=== PATIENT | male | born 1975 | race Caucasian/White ===

== ENCOUNTER 2017-05-25 12:31 | Outpatient (CLI) | payer OTHER ==
--- NOTE | 2017-05-26 15:02 | MRI Report ---
EXAM: MRI CERVICAL SPINE WITHOUT CONTRAST EXAM DATE: 05/25/2017 01:17 PM. CLINICAL HISTORY: Left arm numbness and tingling COMPARISONS: None. TECHNIQUE: Multiplanar, multisequence T1-weighted and fluid-sensitive sequences of the cervical spine without contrast. Other: None. FINDINGS: Neurologic Structures: The visualized posterior fossa structures are unremarkable. No signal abnormal ity in the visualized spinal cord. Alignment: No scoliosis or spondylolisthesis. Bone Marrow: No gross fractures or bone lesions. No marrow edema. Interspace Levels/Facets: C1-C2: Unremarkable. C2-C3: Unremarkable. C3-C4: Unremarkable. C4-C5: Unremarkable. C5-C6: Mild broad based bulge. Mild central stenosis. Moderate bilateral stenosis and prominent fac ets. C6-C7: Moderate broad based disk bulge with moderate central and foraminal stenosis C7-T1: Unremarkable. Musculature: Normal. No edema or fatty atrophy. Other: The paravertebral and prevertebral soft tissues are normal. IMPRESSION: 1. Spinal cord, bones and marrow have a normal appearance. 2. C5-C6 shows mild central stenosis and moderate bilateral stenosis. 3. C6-C7 shows moderate central and foraminal stenosis. 4. C7-T1 is normal. [facility] Referring Provider Line: [phone] SITE ID: [id number]
== END 2017-05-25 12:32 | disposition home or self-care (01) ==
LOC: DI 12:31
PROVIDERS: ATTEND General Practice
DX: R20.0 Anesthesia of skin (principal); M48.02 Spinal stenosis, cervical region
CPT/HCPCS: 72141